=== PATIENT | female | born 2005 | race Caucasian/White ===

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

== ENCOUNTER 2023-07-25 21:43 | Emergency (ER) | payer OTHER ==
[~2023-07-25] VITALS: Ht 157.5 cm; Wt 81.6 kg
[2023-07-25 21:53] VITALS: BP 129/70; PULSE 90; RESP 16; TEMP 97.4; O2SAT 99
[2023-07-26] MEDS: PHENYLEPHRINE 1% 15 ML BTL NS ONE (00:16)
[2023-07-26] MEDS ORDERED: ACET-2619 PO (00:51)
[2023-07-26] MEDS ORDERED: OXYM20SP1 NS (00:52)
== END 2023-07-26 01:01 | disposition home or self-care (01) ==
LOC: MED 21:43
DX: S00.33XA Contusion of nose, initial encounter (principal); R04.0 Epistaxis; Z79.899 Other long term (current) drug therapy; W22.8XXA Striking against or struck by other objects, initial encounter; Y92.89 Other specified places as the place of occurrence of the external cause; Y93.89 Activity, other specified; Y99.8 Other external cause status
CPT/HCPCS: 70160; 99283